=== PATIENT | male | born 1975 | race African-American/Black ===

== ENCOUNTER 2017-07-11 08:22 | Emergency (ER) | payer SELFPAY ==
[~2017-07-11] VITALS: Ht 185.4 cm; Wt 92.0 kg
[2017-07-11] MEDS ORDERED: AMLO10TA80 PO (08:38)
[2017-07-11 10:23] VITALS: BP 183/128
== END 2017-07-11 10:44 | disposition home or self-care (01) ==
LOC: ER 08:38
DX: Z76.0 Encounter for issue of repeat prescription (principal); I10 Essential (primary) hypertension
CPT/HCPCS: 99283; Z7610

== ENCOUNTER 2017-08-08 11:55 | Emergency (ER) | payer MEDICAID ==
[~2017-08-08] VITALS: Ht 182.9 cm; Wt 100.0 kg
[~2017-08-08 11:55] MED LIST: AMLO10TA80 PO
[2017-08-08 15:10] LABS: BASOPHILS % 0.8 % (0.0-2.0); EOSINOPHILS % 2.7 % (0.0-5.0); HEMATOCRIT. 39.4 % (42.0-52.0); HEMOGLOBIN. 14.1 g/dL (14.0-18.0); LYMPHOCYTES % 35.8 % (20.0-50.0); MEAN CORPUSCULAR HEMOGLOBIN 29.2 pg (28.0-32.0); MEAN CORPUSCULAR VOLUME 81.7 fL (80.0-94.0); MEAN PLATELET VOLUME 9.6 fl (7.4-10.4); NEUTROPHILS % 52.7 % (40.0-76.0); PLATELET 233 x1000/uL (130-400); RED BLOOD CELL COUNT 4.82 mill/uL (4.7-6.1); RED CELL DISTRIBUTION WIDTH 13.2 % (11.6-14.6)
[2017-08-08 15:16] LABS: CHLORIDE 105 mEq/L (98-107)
[2017-08-08 16:35] VITALS: BP 156/93
== END 2017-08-08 16:50 | disposition home or self-care (01) ==
LOC: ER 13:13
DX: I10 Essential (primary) hypertension (principal)
CPT/HCPCS: 36415; 80053; 85025; 99284